=== PATIENT | female | born 1955 ===

== ENCOUNTER 2023-04-29 06:48 | Outpatient (RCR) | payer MEDICARE, BC, SELFPAY | END 2023-04-29 23:59 | disposition home or self-care (01) | LOC: RPT 06:48 | PROVIDERS: ATTENDING PHYSICIAN Physical Medicine & Rehabilitation Pain Medicine; PRIMARYCARE PHYSICIAN Internal Medicine | DX: I97.2 Postmastectomy lymphedema syndrome (principal); Z73.6 Limitation of activities due to disability; R29.3 Abnormal posture; Z85.3 Personal history of malignant neoplasm of breast; Z90.13 Acquired absence of bilateral breasts and nipples | CPT/HCPCS: 97162; 97530 ==

== ENCOUNTER 2023-06-17 06:30 | Outpatient (RCR) | payer MEDICARE, BC, SELFPAY | END 2023-06-17 23:59 | disposition home or self-care (01) | LOC: RPT 06:30 | PROVIDERS: ATTENDING PHYSICIAN Physical Medicine & Rehabilitation Pain Medicine; PRIMARYCARE PHYSICIAN Internal Medicine | DX: I97.2 Postmastectomy lymphedema syndrome (principal); M54.50 Low back pain, unspecified; R26.2 Difficulty in walking, not elsewhere classified; M62.81 Muscle weakness (generalized); M54.42 Lumbago with sciatica, left side; R29.3 Abnormal posture; Z85.3 Personal history of malignant neoplasm of breast; Z90.13 Acquired absence of bilateral breasts and nipples | CPT/HCPCS: 97140; 97164; 97530 ==

== ENCOUNTER 2023-07-22 10:59 | Outpatient (RCR) | payer MEDICARE, BC, SELFPAY | END 2023-07-22 23:59 | disposition home or self-care (01) | LOC: RPT 10:59 | PROVIDERS: ATTENDING PHYSICIAN Physical Medicine & Rehabilitation Pain Medicine; PRIMARYCARE PHYSICIAN Internal Medicine | DX: I97.2 Postmastectomy lymphedema syndrome (principal); M54.50 Low back pain, unspecified; Z73.6 Limitation of activities due to disability; R26.2 Difficulty in walking, not elsewhere classified; M62.81 Muscle weakness (generalized); M54.42 Lumbago with sciatica, left side; Z85.3 Personal history of malignant neoplasm of breast; Z90.13 Acquired absence of bilateral breasts and nipples | CPT/HCPCS: 97110; 97112; 97140; 97530 ==

== ENCOUNTER 2023-08-17 10:49 | Outpatient (RCR) | payer MEDICARE, BC, SELFPAY | END 2023-08-17 23:59 | disposition home or self-care (01) | LOC: RPT 10:49 | PROVIDERS: ATTENDING PHYSICIAN Physical Medicine & Rehabilitation Pain Medicine; PRIMARYCARE PHYSICIAN Internal Medicine | DX: I97.2 Postmastectomy lymphedema syndrome (principal); Z73.6 Limitation of activities due to disability; M54.50 Low back pain, unspecified; R26.2 Difficulty in walking, not elsewhere classified; M62.81 Muscle weakness (generalized); M54.42 Lumbago with sciatica, left side; R26.81 Unsteadiness on feet; Z85.3 Personal history of malignant neoplasm of breast; Z90.13 Acquired absence of bilateral breasts and nipples | CPT/HCPCS: 97110; 97140; 97530 ==

== ENCOUNTER 2023-09-25 10:57 | Outpatient (RCR) | payer MEDICARE, BC, SELFPAY | END 2023-09-25 23:59 | disposition home or self-care (01) | LOC: RPT 10:57 | PROVIDERS: ATTENDING PHYSICIAN Physical Medicine & Rehabilitation Pain Medicine; PRIMARYCARE PHYSICIAN Internal Medicine | DX: I97.2 Postmastectomy lymphedema syndrome (principal); I89.0 Lymphedema, not elsewhere classified; M54.50 Low back pain, unspecified; Z90.13 Acquired absence of bilateral breasts and nipples; Z85.3 Personal history of malignant neoplasm of breast; Z73.6 Limitation of activities due to disability; R26.81 Unsteadiness on feet; M62.81 Muscle weakness (generalized); M54.42 Lumbago with sciatica, left side | CPT/HCPCS: 97110; 97112; 97140; 97530 ==

== ENCOUNTER 2023-10-19 09:21 | Outpatient (RCR) | payer MEDICARE, BC, SELFPAY | END 2023-10-19 23:59 | disposition home or self-care (01) | LOC: RPT 09:21 | PROVIDERS: ATTENDING PHYSICIAN Physical Medicine & Rehabilitation Pain Medicine; PRIMARYCARE PHYSICIAN Internal Medicine | DX: I97.2 Postmastectomy lymphedema syndrome (principal); R26.81 Unsteadiness on feet; M62.81 Muscle weakness (generalized); M54.42 Lumbago with sciatica, left side; Z85.3 Personal history of malignant neoplasm of breast; Z90.13 Acquired absence of bilateral breasts and nipples | CPT/HCPCS: 97110; 97140; 97530 ==

== ENCOUNTER 2023-11-25 09:12 | Outpatient (RCR) | payer MEDICARE, BC, SELFPAY | END 2023-11-25 23:59 | disposition home or self-care (01) | LOC: RPT 09:12 | PROVIDERS: ATTENDING PHYSICIAN Physical Medicine & Rehabilitation Pain Medicine; PRIMARYCARE PHYSICIAN Internal Medicine | DX: I97.2 Postmastectomy lymphedema syndrome (principal); Z85.3 Personal history of malignant neoplasm of breast; Z90.13 Acquired absence of bilateral breasts and nipples; Z73.6 Limitation of activities due to disability; R26.81 Unsteadiness on feet; M62.81 Muscle weakness (generalized); M54.42 Lumbago with sciatica, left side | CPT/HCPCS: 97110; 97140; 97530 ==

== ENCOUNTER 2023-12-16 08:46 | Outpatient (RCR) | payer MEDICARE, BC, SELFPAY | END 2023-12-16 23:59 | disposition home or self-care (01) | LOC: RPT 08:46 | PROVIDERS: ATTENDING PHYSICIAN Physical Medicine & Rehabilitation Pain Medicine; PRIMARYCARE PHYSICIAN Internal Medicine | DX: I97.2 Postmastectomy lymphedema syndrome (principal); Z85.3 Personal history of malignant neoplasm of breast; Z90.13 Acquired absence of bilateral breasts and nipples; Z73.6 Limitation of activities due to disability; R26.81 Unsteadiness on feet; M62.81 Muscle weakness (generalized); M54.42 Lumbago with sciatica, left side | CPT/HCPCS: 97110; 97112; 97140; 97530 ==

== ENCOUNTER 2024-01-20 06:41 | Outpatient (RCR) | payer MEDICARE, BC, SELFPAY | END 2024-01-20 23:59 | disposition home or self-care (01) | LOC: RPT 06:41 | PROVIDERS: ATTENDING PHYSICIAN Physical Medicine & Rehabilitation Pain Medicine; PRIMARYCARE PHYSICIAN Internal Medicine | DX: I97.2 Postmastectomy lymphedema syndrome (principal); C50.911 Malignant neoplasm of unspecified site of right female breast; M54.50 Low back pain, unspecified; Z73.6 Limitation of activities due to disability; R26.81 Unsteadiness on feet; M62.81 Muscle weakness (generalized); M54.42 Lumbago with sciatica, left side; Z90.13 Acquired absence of bilateral breasts and nipples | CPT/HCPCS: 97110; 97112; 97140; 97530 ==

== ENCOUNTER 2024-02-23 13:47 | Outpatient (RCR) | payer MEDICARE, BC, SELFPAY | END 2024-02-23 23:59 | disposition home or self-care (01) | LOC: RPT 13:47 | PROVIDERS: ATTENDING PHYSICIAN Physical Medicine & Rehabilitation Pain Medicine; PRIMARYCARE PHYSICIAN Internal Medicine | DX: I97.2 Postmastectomy lymphedema syndrome (principal); M54.50 Low back pain, unspecified; R26.81 Unsteadiness on feet; Z73.6 Limitation of activities due to disability; M54.42 Lumbago with sciatica, left side; Z85.3 Personal history of malignant neoplasm of breast; Z90.13 Acquired absence of bilateral breasts and nipples | CPT/HCPCS: 97110; 97112; 97140; 97530 ==

== ENCOUNTER 2024-03-04 08:54 | Outpatient (RCR) | payer MEDICARE, BC, SELFPAY | END 2024-03-04 11:45 | disposition home or self-care (01) | LOC: RPT 08:54 | PROVIDERS: ATTENDING PHYSICIAN Physical Medicine & Rehabilitation Pain Medicine; PRIMARYCARE PHYSICIAN Internal Medicine | DX: I97.2 Postmastectomy lymphedema syndrome (principal); R26.81 Unsteadiness on feet; M54.42 Lumbago with sciatica, left side; Z73.6 Limitation of activities due to disability; Z90.13 Acquired absence of bilateral breasts and nipples; Z85.3 Personal history of malignant neoplasm of breast | CPT/HCPCS: 97140; 97530 ==

== ENCOUNTER 2024-11-03 08:27 | Outpatient (RCR) | payer MEDICARE, BC, SELFPAY | END 2024-11-03 23:59 | disposition home or self-care (01) | LOC: RPT 08:27 | PROVIDERS: FAMILY PHYSICIAN Internal Medicine | DX: I97.2 Postmastectomy lymphedema syndrome (principal); Z73.6 Limitation of activities due to disability; M62.81 Muscle weakness (generalized); Z90.13 Acquired absence of bilateral breasts and nipples; Z85.3 Personal history of malignant neoplasm of breast; E89.89 Other postprocedural endocrine and metabolic complications and disorders | CPT/HCPCS: 97140; 97162; 97530 ==

== ENCOUNTER 2024-11-19 12:26 | Emergency (ER) | payer MEDICARE, BC, SELFPAY ==
[2024-11-19 12:27] VITALS: BP 167/83
--- NOTE | 2024-11-19 12:51 | ED.GENMED ---
History of Present Illness
General
Chief Complaint: DVT/Possible Blood Clot
Source: patient
Exam Limitations: none
Time Seen by Provider: 11/19/24 12:48
History of Present Illness
History of Present Illness:
See MDM
Past History
Past History
ED Past Medical History: HTN
ED Past Surgical History: Orthopedic
Social History
Tobacco: Non-smoker
Alcohol: None
Phy Exam
Physical Exam
Physical Exam:
See MDM
Course
Orders/Labs/Results
Orders:
Orders
11/19/24 12:51
US Periph Venous LOWER Ext RT Urgent
Comment:
Reason For Exam: R calf pain
Vital Signs
Initial and Last Documented VS:
Initial Vital Signs
Temp Pulse Resp BP Pulse Ox
97.8 F 94 20 167/83 98
11/19/24 12:27 11/19/24 12:27 11/19/24 12:27 11/19/24 12:27 11/19/24 12:27
Last Documented Vital Signs
Temp Pulse Resp BP Pulse Ox
97.8 F 94 20 167/83 98
11/19/24 12:27 11/19/24 12:27 11/19/24 12:27 11/19/24 12:27 11/19/24 12:53
MDM/Problems Addressed
Differential Diagnosis Includes:
Note:
CHIEF COMPLAINT(S)
Leg pain.
HISTORY OF PRESENT ILLNESS
The patient is a 69-year-old female who presents with right leg pain that began approximately 15 minutes prior to evaluation. The patient describes the pain as originating from a 'knot' sensation ascending the leg, now localized in the 'fatty part'
of the leg. On examination, there is tenderness with palpation in the affected area. The patient reports chronic numbness and tingling in the feet and hands, attributed to neuropathy, though the current issue is characterized by acute pain without
numbness or tingling. The patient was ambulating when the pain began.
The consideration for differential includes a muscle strain, although the physician I advised that a deep vein thrombosis (DVT) must be ruled out. The patient denies the use of blood thinners and declines pain medication. Her only current medication
is for hypertension, and she rarely uses analgesics such as acetaminophen.
REVIEW OF SYSTEMS
- Musculoskeletal: Pain in right leg, no weakness reported.
- Neurological: Chronic numbness and tingling in hands and feet, previously diagnosed as neuropathy.
PHYSICAL EXAM
General: Alert, no acute distress.
Skin: Warm, dry.
Head: Normocephalic, atraumatic
Neck: Appears supple, trachea midline.
Eyes, Ears, Nose, Mouth, and Throat: Oral mucosa moist.
Cardiovascular: No signs of cyanosis
Respiratory: Respirations are non-labored.
Abdomen: Non-distended
Musculoskeletal: No deformities. Very mild tenderness to distal left calf without edema or skin changes. Symptoms worse with left dorsiflexion indicating likely muscle strain. The distal extremity otherwise neurovascular intact
Neurological: No focal neurological deficit observed.
Psychiatric: Cooperative, appropriate mood and affect.
PROBLEM LIST
- Acute: Right leg pain�rule out DVT vs. muscle strain
PLAN
An ultrasound of the affected leg will be ordered to evaluate for a possible deep vein thrombosis. The patient declined pain medication at this time.
DIFFERENTIAL DIAGNOSIS
The differential diagnosis includes, in no particular order and is not limited to:
1. Deep vein thrombosis (DVT)
2. Muscle strain
3. Peripheral neuropathy exacerbation
4. Lumbar radiculopathy
5. Thrombophlebitis
6. Bakers cyst
7. Cellulitis
8. Compartment syndrome
9. Tendonitis
10. Atherosclerosis
Disposition:
SUMMARY OF ENCOUNTER
The patient is a 69-year-old female presenting with acute right leg pain that began approximately 15 minutes before evaluation, described as a sensation of being 'knocked' and leading to localized pain in the fatty part of the leg. After evaluating
the pain, an ultrasound was ordered to rule out a possible deep vein thrombosis (DVT). The ultrasound result was negative for DVT. Based on the examination and mechanism of injury, the diagnosis is likely a calf strain.
DISPOSITION
Discharge
PLAN
Discussed likely calf strain as the cause of pain. Recommended Tylenol (acetaminophen) for pain management and advised adequate hydration. Provided return precautions should the pain worsen or new symptoms develop.
PATIENT EDUCATION AND COUNSELING
The patient was educated on recognizing signs that would necessitate a return to the emergency department, such as increased pain, swelling, or any new symptoms. Reinforced the importance of hydration and using acetaminophen as needed for pain
management.
FOLLOW-UP INSTRUCTIONS
The patient was instructed to follow up with primary care if symptoms persist or worsen, and she was provided guidance on returning to the emergency department if the situation changes.
MEDICAL DECISION MAKING
- Number and Complexity of Problems Addressed: Chronic conditions affecting care�Peripheral neuropathy, Hypertension
-Data:
Category 1
- My independent interpretation of the ultrasound: The ultrasound was negative for DVT.
-Risk:
Consideration of Admission/Observation: Escalation of care including admission/observation was considered given the complexity and risk of the patients presenting complaint, but ultimately the patient is deemed safe for outpatient management with
close follow-up. The work-up was reassuring, did not reveal any acute life/organ-threatening processes, and the patient is agreeable with discharge.
DIAGNOSIS
Calf muscle strain (ICD-10: S86.819A)
*Pulse Oximetry
SaO2: 98
Oxygen Mode of Delivery: Room air
Patient hypoxic: no
*Critical Care Note
Total Time (30-74mins, 75-104mins- exclusive of procedures): Not Applicable
ED Attending Note
-
Portions of this chart may have been created with voice recognition software.� Occasional wrong word or��sound alike� substitutions may have occurred due to the inherent limitations of voice recognition software.
Discharge Plan
Departure
Patient Disposition: Home (Routine Discharge)
Date of Disposition: 11/19/24
Time of Disposition: 14:02
Patient with high blood pressure during this ER visit?: Yes
Discharge Problem:
Strain of calf muscle
Instructions: Lower Extremity Muscle Strain (DC), BLOOD PRESSURE
Activity Restrictions/Additional Instructions:
Please return for any worsening symptoms.
You may return at any time if you have further concerns.
Please follow up with your doctor at the first available appointment, preferably this week.
Thank you for choosing [facility].
Interventions
Interventions:
*Risk Screen - Suicide Last Done: 11/19/24 12:27
*General Assessment Last Done: 11/19/24 12:52
*Neglect/Abuse Screening Last Done: 11/19/24 12:27
*ED- Fall Risk Assessment Last Done: 11/19/24 12:52
*ED COVID-19 Vaccine History Last Done: 11/19/24 12:52
ED- Cardiac Assessment Last Done: 11/19/24 12:52
ED- Pulmonary Assessment Last Done: 11/19/24 12:52
ED-Peripheral Vascular Assessment Last Done: 11/19/24 12:52
ED-Skin Assessment Last Done: 11/19/24 12:52
Discharge Date and Time
Print Language: [place]
[2024-11-19 12:52] VITALS: BMI 36.2
== END 2024-11-19 14:15 | disposition home or self-care (01) ==
LOC: EMR 12:26
PROVIDERS: EMERGENCY PHYSICIAN Student in an Organized Health Care Education/Training Program; FAMILY PHYSICIAN Internal Medicine
DX: S86.911A Strain of unspecified muscle(s) and tendon(s) at lower leg level, right leg, initial encounter (principal); X58.XXXA Exposure to other specified factors, initial encounter; G62.9 Polyneuropathy, unspecified; I10 Essential (primary) hypertension
CPT/HCPCS: 99284; 93971

== ENCOUNTER 2024-12-22 09:05 | Outpatient (RCR) | payer MEDICARE, BC, SELFPAY | END 2024-12-22 23:59 | disposition home or self-care (01) | LOC: RPT 09:05 | PROVIDERS: FAMILY PHYSICIAN Internal Medicine | DX: I97.2 Postmastectomy lymphedema syndrome (principal); Z73.6 Limitation of activities due to disability; M62.81 Muscle weakness (generalized); Z85.3 Personal history of malignant neoplasm of breast; Z90.13 Acquired absence of bilateral breasts and nipples; E89.89 Other postprocedural endocrine and metabolic complications and disorders | CPT/HCPCS: 97112; 97140 ==

== ENCOUNTER 2025-01-19 08:52 | Outpatient (RCR) | payer MEDICARE, BC, SELFPAY | END 2025-01-19 23:59 | disposition home or self-care (01) | LOC: RPT 08:52 | PROVIDERS: ATTENDING PHYSICIAN Nurse Practitioner Primary Care; FAMILY PHYSICIAN Internal Medicine | DX: I97.2 Postmastectomy lymphedema syndrome (principal); Z73.6 Limitation of activities due to disability; M62.81 Muscle weakness (generalized); E89.89 Other postprocedural endocrine and metabolic complications and disorders; Z85.3 Personal history of malignant neoplasm of breast; Z90.13 Acquired absence of bilateral breasts and nipples | CPT/HCPCS: 97112; 97140; 97530 ==

== ENCOUNTER 2025-02-16 07:32 | Outpatient (RCR) | payer MEDICARE, BC, SELFPAY | END 2025-02-16 23:59 | disposition home or self-care (01) | LOC: RPT 07:32 | PROVIDERS: ATTENDING PHYSICIAN Nurse Practitioner Primary Care; FAMILY PHYSICIAN Internal Medicine | DX: I97.2 Postmastectomy lymphedema syndrome (principal); Z73.6 Limitation of activities due to disability; M62.81 Muscle weakness (generalized); E89.89 Other postprocedural endocrine and metabolic complications and disorders; Z85.3 Personal history of malignant neoplasm of breast; Z90.13 Acquired absence of bilateral breasts and nipples | CPT/HCPCS: 97110; 97112; 97140; 97530 ==

== ENCOUNTER 2025-03-14 09:26 | Outpatient (RCR) | payer MEDICARE, BC, SELFPAY | END 2025-03-14 23:59 | disposition home or self-care (01) | LOC: RPT 09:26 | PROVIDERS: ATTENDING PHYSICIAN Nurse Practitioner Primary Care; FAMILY PHYSICIAN Internal Medicine | DX: I97.2 Postmastectomy lymphedema syndrome (principal); Z73.6 Limitation of activities due to disability; M62.81 Muscle weakness (generalized); E89.89 Other postprocedural endocrine and metabolic complications and disorders; Z85.3 Personal history of malignant neoplasm of breast; Z90.13 Acquired absence of bilateral breasts and nipples | CPT/HCPCS: 97110; 97140; 97530 ==

== ENCOUNTER 2025-03-30 06:44 | Outpatient (RCR) | payer MEDICARE, BC, SELFPAY | END 2025-03-30 23:59 | disposition home or self-care (01) | LOC: RPT 06:44 | PROVIDERS: ATTENDING PHYSICIAN Nurse Practitioner Primary Care; FAMILY PHYSICIAN Internal Medicine | DX: I97.2 Postmastectomy lymphedema syndrome (principal); Z73.6 Limitation of activities due to disability; M62.81 Muscle weakness (generalized); E89.89 Other postprocedural endocrine and metabolic complications and disorders; Z85.3 Personal history of malignant neoplasm of breast; Z90.13 Acquired absence of bilateral breasts and nipples | CPT/HCPCS: 97014; 97016; 97112; 97140; 97530 ==